=== PATIENT | female | born 1955 | race Caucasian/White ===

== ENCOUNTER 2019-09-09 09:52 | Outpatient (CLI) | payer BC ==
--- NOTE | 2019-09-09 10:13 | RAD ---
Exam: XR Toe(s) Rt Min 2 View HISTORY: Injury to right toes. COMPARISON: None FINDINGS: No acute fracture, dislocation, or other acute osseous abnormality is identified. IMPRESSION: No acute osseous abnormality is identified.
== END 2019-09-09 09:53 | disposition home or self-care (01) ==
LOC: BICRAD 09:52
PROVIDERS: ATTEND Physician Assistant
DX: S99.921A Unspecified injury of right foot, initial encounter (principal)

== ENCOUNTER 2019-10-15 13:52 | Inpatient (IN) | payer BC ==
[2019-10-15 14:50] LABS: White Blood Cell (WBC) Count 8.2 thou/uL (4.8-10.8)
--- NOTE | 2019-10-15 14:53 | RAD ---
XR Foot Rt 3 View STANDARD INDICATION: Right toe infection COMPARISON: None. FINDINGS: Bones: No acute fracture. No destructive osteolytic is seen to suggest radiographic evidence of osteo myelitis. Joints: There is scattered osteoarthrosis of the right foot. Lisfranc alignment: Lisfranc alignment appears within normal limits. Soft tissues: There is diffuse soft tissue swelling of the forefoot, midfoot and hindfoot. IMPRESSION: No acute osseous abnormality.
[2019-10-15 15:10] LABS: Hemoglobin 11.6 g/dL (12.0-16.0); Mean Corpuscular HGB CONC 31.9 g/dL (32.0-36.0); Mean Corpuscular Hemoglobin 25.4 pg (27.0-31.0); Mean Corpuscular Volume 79.6 fL (78.0-98.0); Mean Platelet Volume 8.2 fL (7.4-10.4); Platelet Count 372 thou/uL (130-400); RBC Distribution Width 20.9 % (11.5-14.5); Red Blood Cell (RBC) Count 4.55 mill/uL (4.20-5.40)
[2019-10-15 15:23] LABS: Anisocytosis SLIGHT = 6-15 cells (100X) (0-5/hpf); Band 19 % (5-11); Eosinophils 9 % (0-10); Hypochromia SLIGHT = 6-15 cells (100X) (0-5/hpf); Lymphocytes 19 % (21-51); MDiff Complete? YES; Metamyelocyte 1 % (0-0); Monocytes 16 % (0-10); Neutrophil 34 % (42-75); Ovalocytes SLIGHT = 2-5 cells (100X) (0-1/hpf); Platelet Morphology Comment Appears Adequate; Polychromasia SLIGHT = 2-3 cells (100X) (0-2/hpf); Reactive Lymphocytes 1 % (0-10)
[2019-10-15] MEDS ORDERED: Piperacillin/Tazobactam 4.5 GM VIAL ONE (15:41)
[2019-10-15 16:32] LABS: Albumin 4.1 g/dL (3.4-4.8)
[2019-10-15 16:33] LABS: Chloride 97 mmol/L (98-107); Potassium 4.8 mmol/L (3.5-5.1); Sodium 133 mmol/L (136-145)
[2019-10-15 16:34] LABS: Calcium 9.4 mg/dL (7.8-10.44); Glucose 149 mg/dL (80-115)
[2019-10-15 16:35] LABS: Globulin 2.7 g/dL (2.4-3.5); Protein, Total 6.8 g/dL (6.0-8.3)
[2019-10-15 16:36] LABS: Anion Gap 16 mmol/L (10-20); Bilirubin, Total 0.4 mg/dL (0.2-1.2); Carbon Dioxide 25 mmol/L (23-31)
[2019-10-15 16:37] LABS: Alkaline Phosphatase 87 U/L (40-110)
[2019-10-15 16:38] LABS: BUN (Urea Nitrogen) 15 mg/dL (9.8-20.1); Calc. Creatinine Clearance 0 mL/min (70-130); Estimated GFR-MDRD 57
[2019-10-15 16:39] LABS: AST (SGOT) 11 U/L (5-34)
[2019-10-15 16:40] LABS: ALT (SGPT) 25 U/L (8-55)
[2019-10-15] MEDS ORDERED: Gabapentin 300 MG CAP PO SCH (17:00)
[2019-10-15 17:50] LABS: Lactic Acid 1.8 mmol/L (0.5-2.2)
--- NOTE | 2019-10-15 18:48 | PDOC.HHP ---
Hospitalist HPI - History of Present Illness Right 5th toe black History of Present Illness: 63/F with PMH DM II, HTN, HLD presents for right 5th toe black in color. Reports knocking insulated coffee cup off of table and impacting right 5th toe on Saturday (10/11/19), which impact caused an open abrasion, over the next two days the affected toe became purple, "like a bruise", then black today. Reports decreased sensation to affected toe. Denies any recent fever, chills, abdominal pain, N/V/D. She had an appointment with her PCP, Dr. Pires, this morning. Dr. Pires recommend that she come to the ER for further evaluation. The patient has been battling cellulitis to her right 5th toe since July, trials on Augmentin and Bactrim in and recently completed two week therapy of Clindamycin the Saturday (10/10/19). Reports developing pruritic rash to extremities and abdomen when started Clindamycin, treated with oral Benadryl OTC which helped with itching, however continues with rash. Denies any SOB or wheezing. ED Course: Patient noted to have decreased pedal pulse to right foot. Xray of affected foot was negative. LA 2.2, reflex 1.8. WBC 8.2, CRP 3.66, ESR 46 Started on Zosyn and Vancomycin. Dr. Ruiz was consulted and ordered consult of CVS and continuation of Vancomycin and Zosyn. Given Gabapentin 300 mg x 1 in ED, not on this at home. Hospitalist ROS - Review of Systems Constitutional: denies: fever, chills, sweats, malaise Eyes: denies: conjunctivae inflammation, redness ENT: denies: ear pain, nose discharge, nose congestion Respiratory: denies: cough, shortness of breath, hemoptysis, wheezing Cardiovascular: denies: chest pain, palpitations, edema Gastrointestinal: denies: nausea, vomiting, abdominal pain, diarrhea Genitourinary: denies: dysuria, frequency, hematuria Musculoskeletal: reports: back pain (chronic back pain with sciatica). denies: neck pain Skin: reports: rash (Developed diffuse pruritic rash after starting clindamycin) , lesions (abrasion, bruising to right 5th toe), other (dry gangrene to right 5th toe). denies: priti Neurological: denies: weakness, numbness Hospitalist History - Past Medical History Source: patient Cardiac: reports: HTN, Hyperlipidemia. denies: CAD, CHF, [place] Pulmonary: reports: asthma, high cholesterol. denies: CVA/TIA/stroke, congestive heart failure, COPD, heart attack EDGE SANDER: denies: CVA, Dementia, Migraine, Seizure Gastrointestinal: denies: Constipation, GERD, GI bleed Heme/Onc: reports: Anemia NOS. denies: Cancer Musculoskeletal: reports: Chronic low back pain Endocrine: reports: Diabetes, Hypothyroidism Dermatology: reports: Cellulitis - Past Surgical History Past Surgical History: reports: , Tonsillectomy, Other (Left foot neuroma. D&C Cataracts) - Family History Family History: reports: no pertinent history - Social History Smoking Status: Former smoker (Quit in 2011) Alcohol: reports: None Drugs: reports: none Living Situation: With Family Domestic Violence: Negative (Lives with son (Ruel), works for [employer].) Occupation: Works for [employer] Activity level: independent ambulation - Exam General Appearance: NAD Eye: PERRL, anicteric sclera ENT: normocephalic atraumatic, no oropharyngeal lesions, moist mucosa Neck: supple, no JVD, no thyromegaly Heart: RRR, no murmur, no gallops, no rubs, diminshed peripheral pulses Heart - other findings: Right pedal pulse doppler/marked; Left pedal pulse weak and tready Respiratory: CTAB, no wheezes, no rales, no ronchi Gastrointestinal: soft, non-tender, non-distended, normal bowel sounds, no hepatomegaly, no splenomegaly, no guarding, no rigidity Extremities - other findings: Right 5th toe black, decreased sensation, left 5th toe erythema Hospitalist Results - Labs Result Diagrams: 10/15/19 14:27 10/15/19 15:28 Lab results: WBC 8.2 thou/uL (4.8-10.8) 10/15/19 14:27 Hgb 11.6 g/dL (12.0-16.0) L 10/15/19 14:27 Hct 36.2 % (36.0-47.0) 10/15/19 14:27 MCV 79.6 fL (78.0-98.0) 10/15/19 14:27 Plt Count 372 thou/uL (130-400) 10/15/19 14:27 Band Neuts % (Manual) 19 % (5-11) H 10/15/19 14:27 ESR Westergren 46 mm/hr (Less than 30) 10/15/19 14:27 Sodium 133 mmol/L (136-145) L 10/15/19 15:28 Potassium 4.8 mmol/L (3.5-5.1) 10/15/19 15:28 Chloride 97 mmol/L (98-107) L 10/15/19 15:28 Carbon Dioxide 25 mmol/L (23-31) 10/15/19 15:28 BUN 15 mg/dL (9.8-20.1) 10/15/19 15:28 Creatinine 0.98 mg/dL (0.6-1.1) 10/15/19 15:28 Glucose 149 mg/dL (80-115) H 10/15/19 15:28 Lactic Acid 1.8 mmol/L (0.5-2.2) 10/15/19 17:25 Calcium 9.4 mg/dL (7.8-10.44) 10/15/19 15:28 Total Bilirubin 0.4 mg/dL (0.2-1.2) 10/15/19 15:28 AST 11 U/L (5-34) 10/15/19 15:28 ALT 25 U/L (8-55) 10/15/19 15:28 Alkaline Phosphatase 87 U/L (40-110) 10/15/19 15:28 C-Reactive Protein 3.66 mg/dL (= or < 0.5) H 10/15/19 14:27 Serum Total Protein 6.8 g/dL (6.0-8.3) 10/15/19 15:28 Albumin 4.1 g/dL (3.4-4.8) 10/15/19 15:28 - Radiology Interpretation Other Status: image reviewed by me Additional Comment: Xray right foot. Hospitalist H&P A/P - Problem (1) Dry gangrene Code(s): I96 - GANGRENE, NOT ELSEWHERE CLASSIFIED Status: Acute (2) Cellulitis of foot, right Code(s): L03.115 - CELLULITIS OF RIGHT LOWER LIMB Status: Acute (3) Diabetes mellitus, type II Status: Chronic (4) HTN (hypertension) Code(s): I10 - ESSENTIAL (PRIMARY) HYPERTENSION Status: Chronic (5) HLD (hyperlipidemia) Code(s): E78.5 - HYPERLIPIDEMIA, UNSPECIFIED Status: Chronic (6) Hypothyroidism Code(s): E03.9 - HYPOTHYROIDISM, UNSPECIFIED Status: Chronic (7) Asthma Code(s): J45.909 - UNSPECIFIED ASTHMA, UNCOMPLICATED Status: Chronic (8) Anemia Code(s): D64.9 - ANEMIA, UNSPECIFIED Status: Chronic - Plan Plan: Patient battling right foot cellulitis with recent blunt trauma to right 5th toe , failed trials with Augmentin, Bactrim and Clindamycin out patient therapy. Dr. Ruiz consulted, she wants to continue Vancomycin and Zosyn and consult CV surgery. Consult Wound care. Hold metformin Start Accuchecks AC/HS and start Insulin mild sliding scale. Restart home medications once verified. Obtain baseline EKG. Monitor blood pressure. Keep NPO after midnight, pending surgical review. GI prophylaxis. BMP, CBC in AM. Monitor sodium, consider further testing if trends down. Code status Full code. Surrogate decision maker is Ruel aguayo, cell [phone].
[2019-10-15] MEDS ORDERED: Acetaminophen 325 MG TAB PO PRN (19:50)
[2019-10-15] MEDS ORDERED: Ondansetron ODT 4 MG TAB SL PRN (19:50)
[2019-10-15] MEDS ORDERED: Ondansetron PF 4 MG/2 ML Vial IVP PRN (19:50)
[2019-10-15] MEDS ORDERED: Dextrose 5% in Water 1,000 ML IV PRN (19:57)
[2019-10-15] MEDS ORDERED: Dextrose 50% Abboject 50 ML SYRINGE SLOW IVP PRN (19:57)
[2019-10-15] MEDS ORDERED: HumaLOG 300 UNITS/3 ML VIAL SC PRN ×2 (19:57)
[2019-10-15] MEDS ORDERED: Acetaminophen 650 MG Suppository PR PRN (19:57)
[2019-10-15] MEDS ORDERED: Sodium Chloride 0.9% 1,000 ML IV SCH (20:00)
[2019-10-15 21:06] VITALS: BMI 34.5
--- NOTE | 2019-10-15 22:00 | MRI ---
EXAM: MRI right forefoot without contrast PROVIDED CLINICAL HISTORY: Fifth toe gangrene COMPARISON: Radiographs 10/15/2019 FINDINGS: There is increased signal intensity on fluid sensitive sequences involving the fifth digit distal pha lanx. There is no corresponding signal alteration seen on the T1-weighted sequences in this region. Regional marrow signal appears otherwise unremarkable. No regional joint effusion is evident. No foca l concerning regional muscular signal abnormality is evident. There is noncircumscribed fluid signal intensity within the subcutaneous adipose involving the dorsum of the foot, nonspecific. Evaluation for abscess is limited in the absence of IV contrast. Alignment appears anatomic. Joint spaces appear preserved. No significant regional tenosynovial fluid is evident. The dorsal extensor and plantar flexor tendons demonstrate an intact MR appearance. IMPRESSION: Signal alteration involving the great toe distal phalanx may reflect reactive osteitis or early osteo myelitis.
[2019-10-15] MEDS: Famotidine/PF 20 mg/2ml Vial SLOW IVP SCH (22:07)
[2019-10-15] MEDS: Piperacillin/Tazobactam 3.375 GM in Sodium Chloride 0.9% 100 ML IVPB SCH (22:07)
[2019-10-16] MEDS ORDERED: Morphine 2 MG/ML SYRINGE SLOW IVP SCH (01:00)
[2019-10-16] MEDS: Piperacillin/Tazobactam 3.375 GM in Sodium Chloride 0.9% 100 ML IVPB SCH ×4 (03:12→19:48)
[2019-10-16] MEDS: Acetaminophen 325 MG TAB PO PRN ×2 (03:15→14:51)
[2019-10-16 05:48] LABS: Anion Gap 13 mmol/L (10-20); BUN (Urea Nitrogen) 12 mg/dL (9.8-20.1); Calc. Creatinine Clearance 78 mL/min (70-130); Calcium 9.1 mg/dL (7.8-10.44); Carbon Dioxide 25 mmol/L (23-31); Chloride 101 mmol/L (98-107); Estimated GFR-MDRD 63; Glucose 136 mg/dL (80-115); Potassium 4.3 mmol/L (3.5-5.1); Sodium 135 mmol/L (136-145)
[2019-10-16 06:21] LABS: Hemoglobin 10.5 g/dL (12.0-16.0); Mean Corpuscular HGB CONC 31.7 g/dL (32.0-36.0); Mean Corpuscular Hemoglobin 25.3 pg (27.0-31.0); Mean Corpuscular Volume 80.1 fL (78.0-98.0); Mean Platelet Volume 7.5 fL (7.4-10.4); Platelet Count 330 thou/uL (130-400); RBC Distribution Width 20.1 % (11.5-14.5); Red Blood Cell (RBC) Count 4.13 mill/uL (4.20-5.40)
[2019-10-16 06:27] LABS: #Eosinphils 0.9 thou/uL (0.0-0.7); #Lymphocytes 1.4 thou/uL (1.20-3.40); #Neutrophils 3.7 thou/uL (1.40-6.50); %Basophils 0.5 % (0.0-1.0); %Lymphocytes 19.6 % (21.0-51.0); %Monocytes 13.8 % (0.0-10.0); %Neutrophils 53.1 % (42.0-75.0)
[2019-10-16] MEDS: Sodium Chloride 0.9% 1,000 ML IV SCH ×3 (06:49→19:48)
--- NOTE | 2019-10-16 10:58 | CT ---
CTA OF THE ABDOMEN AND PELVIS WITH BILATERAL LOWER EXTREMITY RUNOFF UTILIZING IV CONTRAST AND 3D REFO RMATTED IMAGING: INDICATION: Ischemic right toe with reduced pulses in the right foot and gangrene of the right 5th digit. COMPARISON: None. FINDINGS: ABDOMEN: There is mild subsegmental volume loss involving both lower lobes. There are tiny hypodensities within the liver that cannot be fully characterized but statistically ar e likely reflective of cysts. There is an 11 mm area of arterial enhancement seen within the central right hepatic lobe on image 39 of series 2 that cannot be further characterized. The gallbladder is mildly contracted. The pancreas and adrenal glands and spleen are normal-appearing. There are multiple bilateral renal cysts. One of the largest is seen in the superior pole measuring 2.7 cm. No hydronephrosis is demon strated. The right kidney is diffusely atrophic with diminished enhancement of the right kidney in r elationship to the left kidney. No free fluid or enlarged lymph nodes are evident. PELVIS: The unopacified large and small bowel are within normal limits. The bladder, reproductive structures, rectum, and perirectal soft tissue structures are unremarkable- appearing. OSSEOUS STRUCTURES: There is diffuse osteopenia. There is scattered degenerative and osteoarthritic change. No definite acute osseous abnormality is demonstrated. No overt destructive osteolysis is seen to suggest the p resence of osteomyelitis in the right foot. VASCULATURE: There is severe atherosclerotic disease involving the abdominal aorta with an area of high-grade sten osis involving the suprarenal abdominal aorta on image 52 of series 2 just above the level of the terrence al artery origins. This involves 90% of luminal caliber of the proximal abdominal aorta. There is h igh-grade stenosis involving the origin of the right renal artery. There is severe high-grade stenos is involving the distal aspect of the right renal artery near its bifurcation. There is moderate to high-grade stenosis involving the origin of the left renal artery. There is mild diffuse narrowing i nvolving the proximal aspect of the celiac artery. The SMA is patent. The WILLIE artery is patent. Ad ditional area of high-grade stenosis is seen involving the distal abdominal aorta just proximal to th e iliac bifurcation approximately 90% luminal caliber narrowing. There is complete occlusion of the right common iliac artery with reconstitution of flow at the level of the right external iliac artery through collaterals via the inferior epigastric. Flow is present within the right common femoral ar marley and femoral artery bifurcations. There are multifocal areas of mild atherosclerotic irregularit y involving the superficial femoral artery and right popliteal artery. There is high-grade stenosis involving the origin of the right anterior tibial artery and tibioperoneal trunk. There is complete occlusion of the right anterior tibial artery involving the proximal foreleg. There is complete occl usion of the posterior tibial artery. There is single-vessel runoff via the peroneal artery to the l evel of the right ankle. There is high-grade stenosis along the distal left common iliac artery at the level of the common coral ac bifurcation. There are moderate areas of multifocal stenosis involving the left external iliac ar marley. The left common femoral artery is patent. The left common femoral bifurcation is patent. The re is mild to moderate atherosclerotic irregularity involving the left superficial femoral artery and left popliteal artery. The anterior tibial artery, posterior tibial artery, and peroneal arteries a re patent to the level of the distal left foreleg. The anterior tibial artery and posterior tibial a rtery are visible to the level of the ankle. IMPRESSION: 1. Two focal areas of high-grade stenosis. One involving the suprarenal abdominal aorta just above the level of the renal artery origin and the other within the distal abdominal aorta just prior to th e iliac bifurcations. There is complete occlusion of the right common iliac artery with reconstituti on of flow seen at the level of the right external iliac artery through collaterals. There is comple te occlusion of the right posterior tibial and proximal right anterior tibial artery with single-vess el runoff to the level of the right ankle. 2. High-grade stenosis involving the distal left common iliac artery, and left external iliac artery origin and left internal iliac artery origins. There is 2-vessel runoff to the level of the ankle o f the left lower extremity. 3. High-grade stenosis involving the origin and distal aspect of the right renal artery and chronic diminished perfusion in the right kidney. The right kidney is atrophic. 4. Moderate to high-grade stenosis involving the origin of the left renal artery. Mild narrowing in volving the proximal aspect of the celiac artery. 5. Nonspecific arterial enhancing lesion within the central aspect of the right hepatic lobe may ref lect a flash-filling hemangioma. Arterial metastatic disease is not entirely excluded. A followup C T of the abdomen utilizing hemangioma protocol in 6-8 weeks is recommended. 6. Bilateral renal cysts. 7. Other chronic findings as above. POS: OFF
[2019-10-16] MEDS: Vancomycin HCl 1.25 GM in Sodium Chloride 0.9% 250 ML 250 ML IVPB SCH (11:55)
--- NOTE | 2019-10-16 12:28 | PDOC.HOSPP ---
- Subjective Encounter Date: 10/16/19 Encounter Time: 09:15 Subjective: Expresses no complaint.. - Objective Vital Signs & Weight: Vital Signs (12 hours) Temp Pulse Resp BP Pulse Ox 10/16/19 07:11 98.4 F 97 18 157/75 H 96 10/16/19 03:42 96 10/16/19 03:10 98.5 F 93 18 146/72 H 96 Weight Admit Weight 171 lb Weight 171 lb I&O: 10/15/19 10/16/19 10/17/19 06:59 06:59 06:59 Intake Total 1100 Balance 1100 Result Diagrams: 10/16/19 04:57 10/16/19 04:57 Additional Labs: Accuchecks 10/16/19 10/15/19 05:42 20:50 POC Glucose 149 H 176 H Hospitalist ROS - Medication Medications: Active Medications Generic Name Dose Route Start Last Admin Trade Name Freq PRN Reason Stop Dose Admin Acetaminophen 650 mg 10/15/19 19:57 10/16/19 03:15 Tylenol PO 650 mg Q4H PRN Administration Headache/Fever/Mild Pain (1-3) Famotidine 20 mg 10/15/19 21:00 10/15/19 22:07 Pepcid SLOW IVP 20 mg HS CONNOR Administration Piperacillin Sod/Tazobactam 100 mls @ 200 mls/hr 10/15/19 22:00 10/16/19 03: 12 Sod 3.375 gm/ Sodium Chloride IVPB 100 mls 0400,1000,1600,2200 CONONR Administration Vancomycin HCl 1.25 gm/ Sodium 250 mls @ 166.667 mls/hr 10/16/19 09:00 11:55 Chloride IVPB 250 mls DAILY CONNOR Administration Sodium Chloride 1,000 mls @ 125 mls/hr 10/16/19 06:44 10/16/19 06:49 Normal Saline 0.9% IV Not Given .Q8H CONNOR - Exam General Appearance: NAD Neck: no JVD Heart: RRR Respiratory: CTAB Gastrointestinal: soft Extremities: no edema (Right 5th toe gangrene....foot redness.) Hosp A/P (1) Cellulitis of foot, right Code(s): L03.115 - CELLULITIS OF RIGHT LOWER LIMB Status: Acute (2) Dry gangrene Code(s): I96 - GANGRENE, NOT ELSEWHERE CLASSIFIED Status: Acute (3) Anemia Code(s): D64.9 - ANEMIA, UNSPECIFIED Status: Chronic (4) Diabetes mellitus, type II Status: Chronic (5) HLD (hyperlipidemia) Code(s): E78.5 - HYPERLIPIDEMIA, UNSPECIFIED Status: Chronic (6) HTN (hypertension) Code(s): I10 - ESSENTIAL (PRIMARY) HYPERTENSION Status: Chronic (7) Hypothyroidism Code(s): E03.9 - HYPOTHYROIDISM, UNSPECIFIED Status: Chronic - Plan s/p lower extremity angiography. Seen by vascular surgery. Metformin on hold. On sliding scale insulin..
--- NOTE | 2019-10-16 13:47 | CON ---
DATE OF CONSULTATION: HISTORY OF PRESENT ILLNESS: This is a 63-year-old female with a problem with the right toe since July when she stumped it on something. She has been treated as an outpatient with antibiotics. However, when seen by family practice yesterday, had some cellulitis and was referred to the emergency room and admitted. She states that she has problems with her low back with ambulation. She does have pain in her toe. PAST MEDICAL HISTORY: Includes diabetes mellitus with an A1c in the 8 range typically. She has history of hypertension. She has a history of dyslipidemia. She has a smoking history of a pack to pack and half a day, but quit in 2011. SOCIAL HISTORY: She is nondrinker. She lives with her son and she works for [employer]. PAST SURGICAL HISTORY: Includes , tonsillectomy, D and C, and cataracts. MEDICATIONS: Her home medications include; 1. Nifedipine ER 90 a day. 2. Losartan 50 a day. 3. Levothyroxine 100 mcg a day. 4. Metformin ER 750 a day. 5. Lovastatin 40 q.p.m. 6. Atenolol 50 daily. 7. Aspirin 81 a day. 8. Vitamin D. 9. Vitamin B12. 10. Pulmicort inhaler. ALLERGIES: SHE REPORTS ALLERGIES TO CLINDAMYCIN. PHYSICAL EXAMINATION: VITAL SIGNS: She has a height of 4 feet 11 inches, weight of 171 pounds, and BMI of 35. NECK: No adenopathy. LUNGS: Clear to auscultation anteriorly. CARDIAC: Regular rate and rhythm. ABDOMEN: Obese and nontender, with panniculus overhanging her groin areas. EXTREMITIES: I do not appreciate any femoral popliteal or pedal pulses to palpation. She has right fifth toe, which is black and some slight red streaking proximal to this on the dorsum of her foot. She has no peripheral edema. I have ordered her CT scan and reviewed this and she does have a complete occlusion of her right common and proximal right external iliac artery with heavy calcification. She has milder disease in the left external iliac artery and minimal disease below the groin. Her abdominal aorta has [id number] calcification throughout below the renal arteries and then at the level of the renal arteries, she has rather severe stenosis with intraluminal calcification extending into both renal arteries and proximal to both renal arteries with normal-appearing SMA and celiac arteries and the aorta at that level has some mild posterior calcification. It appears to me that she will require aorta to bilateral femoral artery bypass. Unfortunately, her graft will have to be originated probably above the renal arteries or even consideration of the thoracic aorta. She may need attention to endarterectomy or reimplantation of both renal arteries. Given the magnitude of this, I expect that tertiary care facility would be a more appropriate choice for this intervention. I offered her a referral to [facility] or [facility] and at this time, she is considering [facility] as her first choice. Job ID: [id number]
--- NOTE | 2019-10-16 15:22 | CON ---
DATE OF CONSULTATION: REASON FOR CONSULTATION: Right fifth toe gangrene. HISTORY OF PRESENT ILLNESS: Ms. Cedillo is a 63-year-old woman who stubbed her toe in July. She has been treated with antibiotics without improvement and when she went to her primary care doctor recently the toe tip had turned black, so he sent her to the emergency room. She has not had any fevers or chills. She did have a reaction to the clindamycin which resulted in a rash to both of her feet. She does have diminished sensation in her feet due to diabetes, but states she does have sensation in her proximal fifth toe. She also has some cracked skin due to dry skin and had stubbed her left toe as well, but this seems to be healing okay. She reports pain in her upper thighs when she ambulates more than a block and she reports rest pain in both of her feet, which improves when she gets up and walks. She was seen by Dr. Leon of Cardiovascular Surgery, who recommended a CT angiogram. This showed severe stenosis of the aorta above the level of the renal arteries as well as occlusion of the right common iliac and a high-grade stenosis of the left common iliac. She does have reconstitution of the external iliac with one-vessel runoff to the right foot and two-vessel runoff to the left foot to the level of the ankle. The patient has not had any fevers or chills. She has been on antibiotics fairly continuously since July. She reports pain in her right fifth toe, which is greater than the right foot, which is exacerbated by elevating them. She is a former smoker, but quit in 2011. She states her diabetes is well controlled recently. PAST MEDICAL HISTORY: Diabetes, hypertension, recently diagnosed vascular disease, hyperlipidemia, hypothyroidism and chronic back pain and anemia. No known history of heart attack or stroke or heart failure. PAST SURGICAL HISTORY: , tonsillectomy, D and C, and cataracts. FAMILY HISTORY: Noncontributory. SOCIAL HISTORY: The patient does not smoke, drink, or use illicit drugs. She is a former smoker who quit in 2011. PHYSICAL EXAMINATION: VITAL SIGNS: The patient has been afebrile since her admission. Heart rate 97, respirations 18, 96% saturated on room air, blood pressure 157/75. GENERAL: Reveals an anxious-appearing woman in no acute distress. She is not flushed or toxic in appearance. She is not jaundiced or icteric. HEENT: Unremarkable. NECK: Supple without lymphadenopathy or thyroid nodules. She has no carotid bruits. HEART: Regular in its rate and rhythm without murmurs, rubs, or gallops. LUNGS: Clear to auscultation bilaterally. ABDOMEN: Soft, nondistended, nontender. No palpable masses or hernias. She does have truncal obesity. EXTREMITIES: Warm to the touch with some mild dependent rubor. She has gangrene of the distal right fifth toe down to the proximal interphalangeal joint. There is some mild redness of the skin of the lateral foot, but no lymphangitic streaking. There is no expressible drainage or fluctuance. I do not appreciate pedal pulses, popliteal, or femoral pulses bilaterally, but she does have Doppler signals in her feet. She has some cracked skin and multiple scabs from scratching from when she had her rash. Capillary refill is delayed and sensation is intact, but subjectively diminished. NEUROLOGIC: No focal deficits except for some subjective diminished sensation in her feet. PSYCHIATRIC: Alert, oriented, and appropriate although anxious. LABORATORY DATA: White count is normal, although she did have a slight bandemia on admission, hematocrit is 33, platelets 330. BUN and creatinine are normal at 12 and 0.9. Electrolytes are unremarkable. C-reactive protein was mildly elevated at 3.6. IMAGING: CT angio is as per HPI with severe suprarenal stenosis and common iliac disease bilaterally. She also has some stenosis of the renal artery and celiac artery. MRI of the foot showed some signal changes in the distal fifth phalanx. In the impression, this is dictated as great toe, but in the body of the report is dictated as fifth toe. This is felt to be consistent with either reactive osteitis or early osteomyelitis. 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 This appears to be primarily due to aortic and iliac disease. Dr. Leon of Cardiovascular Surgery has seen her and has recommended that she sees a specialist for this as this would be a very complex surgery requiring reimplantation of the renal arteries and at least a period of ischemia to both kidneys. At the current time, there is no urgent indication for amputation of the right foot and no signs of wet gangrene. I do recommend painting the toe with Betadine each day and observing meticulous foot hygiene. She has rest pain and gangrene and is at high risk for amputation if her blood flow is not improved; however, if her blood flow is improved to the foot, then she will likely autoamputate the tip of her fifth toe. Signs and symptoms of infection were discussed with the patient in detail and she knows to seek immediate medical evaluation if she develops these. The include swelling, redness, drainage, odor, worsening pain, fevers or chills. I will sign off for now as the patient will be following up with Vascular Surgery at a tertiary care center. Job ID: [id number]
[2019-10-16] MEDS ORDERED: Mometasone Furoate 30 PUFF 220 MCG INH SCH (18:30)
[2019-10-16] MEDS: Acetaminophen/Codeine 30-300mg Tablet PO PRN (18:57)
[2019-10-16] MEDS: Famotidine/PF 20 mg/2ml Vial SLOW IVP SCH (19:48)
[2019-10-16] MEDS ORDERED: Aspirin 81 mg Enteric Coated Tablet PO SCH (21:00)
[2019-10-17] MEDS ORDERED: Sodium Chloride 0.9% 1,000 ML IV SCH (00:04)
[2019-10-17] MEDS ORDERED: traMADol HCl 50 MG TAB PO SCH (00:15)
[2019-10-17] MEDS: Acetaminophen/Codeine 30-300mg Tablet PO PRN ×3 (00:31→13:28)
[2019-10-17] MEDS: Piperacillin/Tazobactam 3.375 GM in Sodium Chloride 0.9% 100 ML IVPB SCH ×3 (04:21→16:39)
[2019-10-17] MEDS ORDERED: Levothyroxine Sodium 100 MCG TAB PO SCH (06:00)
[2019-10-17] MEDS ORDERED: Losartan 25 MG TAB PO SCH (09:00)
[2019-10-17] MEDS ORDERED: Atenolol 50 MG TAB PO SCH (09:00)
[2019-10-17 09:13] LABS: Vancomycin, Trough 11.5 ug/mL
[2019-10-17] MEDS: Vancomycin HCl 1.25 GM in Sodium Chloride 0.9% 250 ML 250 ML IVPB SCH (09:16)
[2019-10-17] MEDS: Acetaminophen 325 MG TAB PO PRN ×2 (11:23→16:38)
[2019-10-17 15:23] VITALS: BP 152/78; TEMP 98.3
[2019-10-17] MEDS ORDERED: Atorvastatin Calcium 10 MG TAB PO SCH (17:00)
[2019-10-17] MEDS ORDERED: Mometasone Furoate 30 PUFF 220 MCG INH SCH (18:30)
--- NOTE | 2019-10-18 02:45 | DIS ---
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 SECONDARY DIAGNOSES: [id number] diabetes mellitus, hypertension, hyperlipidemia, hypothyroidism, asthma, and anemia. DISCHARGE DIAGNOSES: Peripheral vascular disease with dry gangrene of the right big toe and foot cellulitis. SECONDARY DIAGNOSES: As above. CONSULTANTS: Dr. Leon and Dr. Ruiz. PROCEDURES: CT angiogram of the aorta with runoff. MRI of the lower extremities. Foot x-ray. COURSE OF HOSPITALIZATION: The patient was evaluated by Dr. 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 in [place] for revascularization. The patient is otherwise clinically stable at this time. PHYSICAL EXAMINATION: GENERAL: Today, she is alert, oriented, in no distress. VITAL SIGNS: Her latest vital signs show a temperature of 98.5, pulse rate 118, respiratory rate 18, blood pressure 171/65. HEAD AND NECK: Normal. HEART: She has regular S1 and S2. LUNGS: Clear. ABDOMEN: Soft. EXTREMITIES: Limbs are unchanged. NEUROLOGIC: She moves all extremities. Arrangement is being made for patient to be transferred to [place]. DISCHARGE TIME: 32 minutes. Job ID: [id number]
[2019-10-18] MEDS ORDERED: Vancomycin 1.5 GRAM/300 ML BAG 1.5 GM in Premix Bag 1 BAG IVPB SCH (09:00)
== END 2019-10-17 17:43 | disposition short-term general hospital (02) | DRG 300 ==
LOC: ERS 13:52 → SURG A 20:06
PROVIDERS: ADMIT Internal Medicine; ATTEND Internal Medicine
DX: E11.52 Type 2 diabetes mellitus with diabetic peripheral angiopathy with gangrene (principal); I96 Gangrene, not elsewhere classified; L03.115 Cellulitis of right lower limb; I10 Essential (primary) hypertension; E78.5 Hyperlipidemia, unspecified; J45.909 Unspecified asthma, uncomplicated; M54.5 Low back pain; G89.29 Other chronic pain; E03.9 Hypothyroidism, unspecified; Z90.89 Acquired absence of other organs; Z87.891 Personal history of nicotine dependence; Z88.8 Allergy status to other drugs, medicaments and biological substances; Z98.49 Cataract extraction status, unspecified eye; I74.5 Embolism and thrombosis of iliac artery
CPT/HCPCS: 36415; 36416; 75635; 80048; 80053; 80202; 83605; 85025; 85652; 86140; 87040; 93306; 96365; 96367; J2270; J2543; J3370; J3490; J7050; S0028